=== PATIENT | female | born 1960 | race Caucasian/White ===

== ENCOUNTER 2017-07-23 15:14 | Emergency (ER) | payer OTHER ==
[2017-07-23 15:30] VITALS: BP 130/79
--- NOTE | 2017-07-23 16:28 | EDPHY ---
H & P Time Seen by Provider: 07/23/17 16:16 HPI/ROS: CHIEF COMPLAINT: Left thigh rash HISTORY OF PRESENT ILLNESS: 57-year-old immunocompetent female complaining of 3 days of progressively worsening painful vesicular lesions along the left anterior proximal thigh. No involvement of her genitalia or labia. No flu- like symptoms. No headache. No back pain. PHYSICAL EXAM (Prior to examination, patient consented to physical exam, hands were washed and my usual and customary physical exam procedures followed) 1) GENERAL: Well-developed, well-nourished, alert and oriented. Appears to be in no acute distress.Examination with female nurse Radha at bedside. 2) HEAD: Normocephalic 3) HEENT: sclera anicteric 4) LUNGS: Breathing comfortably. 5) SKIN: L1 dermatome left side vesicular lesions following a dermatomal distribution. No involvement of the labia. Primarily on the anterior aspect. Smoking Status: Never smoked Constitutional: Initial Vital Signs Temperature (C) 36.7 C 07/23/17 15:28 Heart Rate 58 L 07/23/17 15:28 Respiratory Rate 17 07/23/17 15:28 Blood Pressure 130/79 H 07/23/17 15:28 O2 Sat (%) 100 07/23/17 15:28 O2 Delivery Mode Room Air Allergies/Adverse Reactions: No Known Allergies Allergy (Unverified 07/23/17 15:28) Home Medications: Medication Instructions Recorded Valacyclovir HCl [Valtrex] 1,000 mg PO TID #21 tab 07/23/17 MDM/Departure - MDM ED Course/Re-evaluation: The patient's symptoms are consistent with uncomplicated zoster of the left L1 dermatome in this immunocompetent patient. Plan will be initiation of antiviral therapy with Valtrex monotherapy. Usual customary discharge precautions instructions provided. She does not have a PCP. I provided her referral information. Care of patient under supervision of secondary supervising physician Dr Adams . - Depart Disposition: Home, Routine, Self-Care Clinical Impression: Zoster Qualifiers: Herpes zoster complications: without complications Qualified Code(s): B02.9 - Zoster without complications Condition: Good Instructions: Shingles (ED) Additional Instructions: Return to the ER if you develop flu-like symptoms fevers or any new symptoms that concern you. Prescriptions: Valacyclovir HCl [Valtrex] 1,000 mg PO TID #21 tab Referrals: Celina Ramos MD [Medical Doctor] - 5-7 days, call for appt.
== END 2017-07-23 16:15 | disposition home or self-care (01) ==
DX: B02.9 Zoster without complications (principal)